=== PATIENT | male | born 1960 | race Caucasian/White ===

== ENCOUNTER 2022-10-20 17:20 | Emergency (ER) | payer BC, OTHER ==
[2022-10-20] MEDS ORDERED: methylPREDNISolone Sod Succ/PF 125 MG/2 ML VIAL ONE (18:07)
[2022-10-20] MEDS ORDERED: diphenhydrAMINE 50 MG/ML VIAL ONE (18:07)
[2022-10-20 19:16] LABS: ALT (SGPT) 86 U/L (8-55); AST (SGOT) 52 U/L (5-34); Albumin 3.9 g/dL (3.5-5.0); Alkaline Phosphatase 91 U/L (40-110); Anion Gap 15 mmol/L (10-20); BUN (Urea Nitrogen) 14 mg/dL (8.4-25.7); Bilirubin, Total 0.3 mg/dL (0.2-1.2); Calc. Creatinine Clearance 0 mL/min (70-130); Calcium 9.2 mg/dL (7.8-10.44); Carbon Dioxide 25 mmol/L (22-29); Chloride 103 mmol/L (98-107); Estimated GFR 101; Globulin 3.2 g/dL (2.4-3.5); Glucose 164 mg/dL (70-105); Potassium 4.1 mmol/L (3.5-5.1); Protein, Total 7.1 g/dL (6.0-8.3); Sodium 139 mmol/L (136-145)
[2022-10-20 19:22] LABS: Band 9 % (5-11); Hemoglobin 14.4 g/dL (14.0-18.0); Lymphocytes 5 % (21-51); MDiff Complete? YES; Mean Corpuscular HGB CONC 34.8 g/dL (32.0-36.0); Mean Corpuscular Hemoglobin 33.7 pg (27.0-31.0); Mean Corpuscular Volume 97.1 fl (78.0-98.0); Mean Platelet Volume 6.7 fL (7.4-10.4); Monocytes 3 % (0-10); Neutrophil 83 % (42-75); Platelet Count 349 10x3/uL (130-400); Platelet Morphology Comment Appears Adequate; RBC Distribution Width 11.4 % (11.5-14.5); RBC Morphology Normal; Red Blood Cell (RBC) Count 4.28 mill/uL (4.70-6.10); White Blood Cell (WBC) Count 11.7 10x3/uL (4.8-10.8)
[2022-10-20] MEDS ORDERED: EPINEPHrine 1 MG/ML VIAL ONE ×2 (19:24→19:25)
== END 2022-10-20 21:10 | disposition left against medical advice (07) ==
LOC: MADERS 17:20
DX: T78.3XXA Angioneurotic edema, initial encounter (principal)
CPT/HCPCS: 36415; 80053; 85025; 94760; 96372; 96374; 96375; J0171; J1200; J2930

== ENCOUNTER 2024-02-07 01:52 | Emergency (ER) | payer BC ==
[2024-02-07] MEDS ORDERED: Ondansetron PF 4 MG/2 ML Vial ONE ×2 (02:16→04:53)
[2024-02-07] MEDS ORDERED: Morphine 4 MG/ML VIAL ONE ×2 (02:16→05:22)
[2024-02-07 02:38] LABS: ALT (SGPT) 87 U/L (8-55); AST (SGOT) 65 U/L (5-34); Albumin 4.2 g/dL (3.4-4.8); Alkaline Phosphatase 122 U/L (40-110); Anion Gap 20 mmol/L (10-20); BUN (Urea Nitrogen) 13 mg/dL (8.4-25.7); Bilirubin, Total 5.6 mg/dL (0.2-1.2); Calc. Creatinine Clearance 0 mL/min (70-130); Calcium 9.6 mg/dL (7.8-10.44); Carbon Dioxide 18 mmol/L (23-31); Chloride 100 mmol/L (98-107); Estimated GFR 98; Globulin 3.8 g/dL (2.4-3.5); Glucose 179 mg/dL (80-115); Lipase 24 U/L (8-78); Magnesium 1.7 mg/dL (1.6-2.6); Potassium 3.6 mmol/L (3.5-5.1); Sodium 134 mmol/L (136-145)
[2024-02-07 02:52] LABS: Hematocrit 39.9 % (42.0-52.0); Hemoglobin 12.9 g/dL (14.0-18.0); Mean Corpuscular HGB CONC 32.4 g/dL (32.0-36.0); Mean Corpuscular Hemoglobin 31.8 pg (27.0-31.0); Platelet Count 289 10x3/uL (130-400); RBC Distribution Width 11.6 % (11.5-14.5); Red Blood Cell (RBC) Count 4.07 mill/uL (4.70-6.10); White Blood Cell (WBC) Count 16.2 10x3/uL (4.8-10.8)
[2024-02-07 02:56] LABS: Band 1 % (5-11); Eosinophils 1 % (0-10); Lymphocytes 9 % (21-51); MDiff Complete? YES; Monocytes 2 % (0-10); Neutrophil 87 % (42-75)
[2024-02-07] MEDS ORDERED: Sodium Chloride 0.9% 100 ML ONE (03:10)
[2024-02-07] MEDS ORDERED: Piperacillin/Tazobactam 4.5 GM VIAL ONE (03:10)
== END 2024-02-07 06:12 | disposition short-term general hospital (02) ==
LOC: MADERS 01:52
DX: A41.9 Sepsis, unspecified organism (principal); I10 Essential (primary) hypertension; K80.42 Calculus of bile duct with acute cholecystitis without obstruction; E80.7 Disorder of bilirubin metabolism, unspecified; I77.4 Celiac artery compression syndrome; R74.8 Abnormal levels of other serum enzymes; R74.01 Elevation of levels of liver transaminase levels; F17.210 Nicotine dependence, cigarettes, uncomplicated; Z79.899 Other long term (current) drug therapy
CPT/HCPCS: 74174; 80053; 83605; 83690; 83735; 85025; 87040; 93005; 96365; 96375; 96376; J2270; J2405; J2543; J3490